=== PATIENT | male | born 1955 | race Caucasian/White ===

== ENCOUNTER 2017-03-12 22:56 | Observation (INO) | payer MEDICARE ==
[~2017-03-12] VITALS: Ht 185.4 cm; Wt 87.2 kg
[2017-03-12] MEDS ORDERED: SODIUM CHLOR 0.9% 1000 ML INJ 1,000 ML IV ONE (23:11)
[2017-03-12] MEDS ORDERED: SODIUM CHLORIDE 0.9% FLUSH 10 ML FLUSH IVF PRN (23:15)
[2017-03-12] MEDS ORDERED: ONDANSETRON HCL 4 MG/2 ML VIAL IVP ONE (23:15)
--- NOTE | 2017-03-12 23:19 | PD ---
HPI Chief Complaint: Cardiac Complaint Time Seen by Provider: 23:11 Travel History International Travel<30 days: No Contact w/Intl Traveler<30days: No Traveled to known affect area: No History of Present Illness HPI 61-year-old male presents to the emergency department by private transportation for complaint of severe dizziness and weakness after drinking alcohol and while standing. Patient states she felt as if he might faint so he sat down and did not have a syncopal episode. Patient did have some mild diaphoresis. No chest pain or shortness of breath. Patient recently moved in the past 3 [place] of [place]. Patient is not established with a primary care provider. Patient has history of hypertension CAD with previous stent placement and peripheral neuropathy. Patient does not report any referred neck jaw back shoulder arm or abdominal pain. No recent febrile illness. Patient states he does smoke cigarettes. Patient occasionally uses marijuana. Patient rates pain 0/10 intensity. Triage blood pressure is 84/44 with a heart rate of 53. Patient denies having any preceding pain or straining precipitating the event of dizziness and generalized weakness. No headache no visual disturbance no change in mentation difficulty with speech or swallowing no new unilateral weakness or numbness. Patient does take gabapentin for chronic peripheral neuropathy of the hands and feet. Patient is also prescribed Wellbutrin, Robaxin, and Toradol as well as metoprolol 25 mg twice daily which he has taken for several years. [facility] Past Medical History Narrative Medical Hypertension CAD cardiac stent arthritis peripheral neuropathy; tobacco use marijuana use alcohol use; nursing notes reviewed Social History Tobacco Use: Yes Allergies-Medications (Allergen,Severity, Reaction): Coded Allergies: acetaminophen (Verified Allergy, Unknown, Tachycardia, 03/12/17) Narrative Medication Metoprolol Robaxin Wellbutrin [place] Review of Systems Except as stated in HPI: all other systems reviewed are Neg General / Constitutional: No: Fever, Chills Eyes: No: Visual changes HENT: Positive: Vertigo, Lightheadedness, No: Headaches, Neck Pain Cardiovascular: Positive: Diaphoresis, No: Chest Pain or Discomfort, Palpitations, Syncope, Dyspnea on exertion, Edema, Claudication Respiratory: No: Cough, Shortness of Breath, Wheezing, Pleuritic Pain Gastrointestinal: No: Nausea, Vomiting, Abdominal Pain Genitourinary: No: Flank Pain Musculoskeletal: No: Limited ROM, Weakness, Pain Skin: No Rash Neurologic: Positive: Weakness, Dizziness, No: Syncope, Focal Abnormalities, Coordination Problem, Headache, Change in Mentation, Slurred Speech, Paresthesia , Incontinence, Seizures Psychiatric: Positive: Substance Abuse, No: Anxiety Hematologic/Lymphatic: No: Lymph Node Enlargement Physical Exam Narrative GENERAL: Well-developed well-nourished male in no acute distress no respiratory distress SKIN: Warm and dry. HEAD: Atraumatic. Normocephalic. EYES: Pupils equal and round. No scleral icterus. No injection or drainage. ENT: No nasal bleeding or discharge. Mucous membranes pink and moist. NECK: Trachea midline. No JVD. CARDIOVASCULAR: Decreased Regular rate and rhythm. RESPIRATORY: No accessory muscle use. Clear to auscultation. Breath sounds equal bilaterally. GASTROINTESTINAL: Abdomen soft, non-tender, nondistended. Hepatic and splenic margins not palpable. MUSCULOSKELETAL: Extremities without clubbing, cyanosis, or edema. No obvious deformities. NEUROLOGICAL: Awake and alert. No obvious cranial nerve deficits. Motor grossly within normal limits. Five out of 5 muscle strength in the arms and legs. Normal speech. PSYCHIATRIC: Appropriate mood and affect; insight and judgment normal. Data Data Last Documented VS Vital Signs Date Time Temp Pulse Resp B/P (MAP) Pulse Ox O2 Delivery O2 Flow Rate FiO2 03/13/17 00:34 97.7 51 18 83/52 (62) 95 Room Air Orders Orders Electrocardiogram (03/12/17 23:11) Complete Blood Count With Diff (03/12/17 23:11) Comprehensive Metabolic Panel (03/12/17 23:11) Magnesium (Mg) (03/12/17 23:11) Ckmb (Isoenzyme) Profile (03/12/17 23:11) Troponin I (03/12/17 23:11) Act Partial Throm Time (Ptt) (03/12/17 23:11) Prothrombin Time / Inr (Pt) (03/12/17 23:11) Urinalysis - C+S If Indicated (03/12/17 23:11) Chest, Single Ap (03/12/17 23:11) Ecg Monitoring (03/12/17 23:11) Iv Access Insert/Monitor (03/12/17 23:11) Oximetry (03/12/17 23:11) Ondansetron Inj (Zofran Inj) (03/12/17 23:15) Sodium Chloride 0.9% Flush (Ns Flush) (03/12/17 23:15) Sodium Chlor 0.9% 1000 Ml Inj (Ns 1000 M (03/12/17 23:11) Alcohol (Ethanol) (03/12/17 23:11) CKMB (03/12/17 23:15) CKMB% (03/12/17 23:15) Sodium Chlor 0.9% 1000 Ml Inj (Ns 1000 M (03/13/17 00:45) Admit Order (Ed Use Only) (03/13/17 ) ^ Saline Lock (03/13/17 00:48) Resp Oxygen Harjit C Titrat 1-4 L (03/13/17 ) Notify Dr: Other (03/13/17 00:48) Sodium Chloride 0.9% Flush (Ns Flush) (03/13/17 09:00) Sodium Chloride 0.9% Flush (Ns Flush) (03/13/17 01:00) Ct Brain W/O Iv Contrast(Rout) (03/13/17 ) Labs Laboratory Tests Test 03/12/17 23:15 White Blood Count 8.7 TH/MM3 Red Blood Count 3.99 MIL/MM3 Hemoglobin 13.3 GM/DL Hematocrit 38.4 % Mean Corpuscular Volume 96.1 FL Mean Corpuscular Hemoglobin 33.2 PG Mean Corpuscular Hemoglobin Concent 34.6 % Red Cell Distribution Width 12.1 % Platelet Count 268 TH/MM3 Mean Platelet Volume 8.9 FL Neutrophils (%) (Auto) 61.3 % Lymphocytes (%) (Auto) 25.8 % Monocytes (%) (Auto) 8.3 % Eosinophils (%) (Auto) 4.0 % Basophils (%) (Auto) 0.6 % Neutrophils # (Auto) 5.3 TH/MM3 Lymphocytes # (Auto) 2.3 TH/MM3 Monocytes # (Auto) 0.7 TH/MM3 Eosinophils # (Auto) 0.3 TH/MM3 Basophils # (Auto) 0.1 TH/MM3 CBC Comment DIFF FINAL Differential Comment Prothrombin Time 10.9 SEC Prothromb Time International Ratio 1.0 RATIO Activated Partial Thromboplast Time 25.1 SEC Blood Urea Nitrogen 18 MG/DL Creatinine 1.40 MG/DL Random Glucose 114 MG/DL Total Protein 7.2 GM/DL Albumin 4.1 GM/DL Calcium Level 8.8 MG/DL Magnesium Level 2.0 MG/DL Alkaline Phosphatase 67 U/L Aspartate Amino Transf (AST/SGOT) 19 U/L Alanine Aminotransferase (ALT/SGPT) 25 U/L Total Bilirubin 0.4 MG/DL Sodium Level 138 MEQ/L Potassium Level 3.8 MEQ/L Chloride Level 105 MEQ/L Carbon Dioxide Level 25.7 MEQ/L Anion Gap 7 MEQ/L Estimat Glomerular Filtration Rate 51 ML/MIN Total Creatine Kinase 138 U/L Creatine Kinase MB 3.4 NG/ML Troponin I LESS THAN 0.02 NG/ML Ethyl Alcohol Level 7 MG/DL [facility] Medical Decision Making Medical Screen Exam Complete: Yes Emergency Medical Condition: Yes Medical Record Reviewed: Yes Interpretation(s) EKG: Sinus bradycardia rate [address] elevation or injury pattern change or ectopy noted alcohol: 7, minimal elevation troponin I: <0.02, not elevated Last Impressions Chest X-Ray 03/12/17 2311 Signed Impressions: Service Date/Time: Sunday, March 12, 2017 23:28 - CONCLUSION: The lungs are clear. Luis Neves MD CBC & BMP Diagram 03/12/17 23:15 Total Protein 7.2, Albumin 4.1, Calcium Level 8.8, Magnesium Level 2.0, Alkaline Phosphatase 67, Aspartate Amino Transf (AST/SGOT) 19, Alanine Aminotransferase (ALT/SGPT) 25, Total Bilirubin 0.4 Vital Signs Date Time Temp Pulse Resp B/P (MAP) Pulse Ox O2 Delivery O2 Flow Rate FiO2 03/13/17 00:34 97.7 51 18 83/52 (62) 95 Room Air 03/13/17 00:09 54 Room Air 03/12/17 23:51 53 18 96/51 (66) 98 Room Air 03/12/17 23:26 97.6 54 18 82/46 (58) 97 03/12/17 23:24 18 98 Room Air Differential Diagnosis Near-syncope, vasovagal syncope, symptomatic bradycardia, ACS, FL, PE, anemia, TIA, alcohol intoxication Narrative Course IV access obtained patient placed on special education tutor and pulse oximetry patient identified to be hypotensive with bradycardia; patient placed in supine position and administered 1 L normal saline Patient resting comfortably voicing no concerns or complaints other than continues to feel mildly weak although remains hypotensive after x 1 L NS additional 1L NS bolus continues to complain of generalized weakness resting supine lab values mild renal insufficiency discussed with [facility] for OBS Physician Communication Physician Communication discussed with Dr Araujo Diagnosis Primary Impression: Near syncope Admitting Information Admitting Physician Requests: Observation Zulma Holbrook MD Mar 12, 2017 23:19
[2017-03-12 23:24] VITALS: RESP 18; O2SAT 98
[2017-03-12 23:26] VITALS: BP 82/46; PULSE 54; RESP 18; TEMP 97.6; O2SAT 97
--- NOTE | 2017-03-12 23:39 | RADRPT ---
EXAM DATE/TIME: 03/12/2017 23:28 [facility] COMPARISON: No previous studies available for comparison. INDICATIONS : Palpitations. MEDICAL HISTORY : Myocardial infarction. SURGICAL HISTORY : Coronary artery stent. ENCOUNTER: Initial ACUITY: 1 day PAIN SCORE: 2/10 LOCATION: Bilateral chest FINDINGS: A single view of the chest demonstrates the lungs to be symmetrically aerated without evidence of mas s, infiltrate or effusion. The cardiomediastinal contours are unremarkable. Osseous structures are intact. CONCLUSION: The lungs are clear. Luis Neves MD on March 12, 2017 at 23:38 Board Certified Radiologist. This report was verified electronically.
[2017-03-12 23:45] LABS: CHLORIDE 105 MEQ/L (98-107); POTASSIUM 3.8 MEQ/L (3.5-5.1); SODIUM (NA) 138 MEQ/L (136-145)
[2017-03-12 23:49] LABS: ANION GAP 7 MEQ/L (5-15); BICARBONATE 25.7 MEQ/L (21.0-32.0)
[2017-03-12 23:50] LABS: BLOOD UREA NITROGEN 18 MG/DL (7-18)
[2017-03-12 23:51] VITALS: BP 96/51; PULSE 53; RESP 18; O2SAT 98
[2017-03-12 23:51] LABS: APTT (PATIENT) 25.1 SEC (24.3-30.1); PROTHROMBIN TIME - PATIENT 10.9 SEC (9.8-11.6)
[2017-03-12 23:52] LABS: ALT (GPT) 25 U/L (12-78); AST (GOT) 19 U/L (15-37)
[2017-03-12 23:53] LABS: GLOMERULAR FILTRATION RATE 51 ML/MIN (>89)
[2017-03-12 23:54] LABS: TOTAL BILIRUBIN ADULT 0.4 MG/DL (0.2-1.0)
[2017-03-12 23:55] LABS: ALKALINE PHOSPHATASE 67 U/L (45-117); CREATINE KINASE 138 U/L (39-308)
[2017-03-13] VITALS (8 sets, daily range): BP systolic 83–118; BP diastolic 52–74; PULSE 49–57; RESP 12–20; TEMP 96.2–97.7; O2SAT 93–98
[2017-03-13 00:07] LABS: CKMB 3.4 NG/ML (0.5-3.6)
[2017-03-13 00:22] LABS: ALCOHOL 7 MG/DL (0-5)
[2017-03-13 00:26] LABS: AUTOMATED NEUTROPHIL # 5.3 TH/MM3 (1.8-7.7); BASOPHIL # 0.1 TH/MM3 (0-0.2); BASOPHIL % 0.6 % (0.0-2.0); EOSINOPHIL # 0.3 TH/MM3 (0-0.4); HEMATOCRIT 38.4 % (39.0-51.0); HEMO FLAGS DIFF FINAL; LYMPH % 25.8 % (9.0-44.0); LYMPHOCYTE # 2.3 TH/MM3 (1.0-4.8); MEAN CELL VOLUME 96.1 FL (80.0-100.0); MEAN CORPUSCULAR HEMOGLOBIN 33.2 PG (27.0-34.0); MEAN CORPUSCULAR HGB CONC 34.6 % (32.0-36.0); MONO % 8.3 % (0.0-8.0); NEUT % 61.3 % (16.0-70.0); PLATELET COUNT 268 TH/MM3 (150-450); RED BLOOD COUNT 3.99 MIL/MM3 (4.50-5.90); RED CELL DISTRIBUTION WIDTH 12.1 % (11.6-17.2); WHITE BLOOD COUNT 8.7 TH/MM3 (4.0-11.0)
[2017-03-13] MEDS ORDERED: SODIUM CHLOR 0.9% 1000 ML INJ 1,000 ML IV ONE (00:45)
[2017-03-13] MEDS ORDERED: SODIUM CHLORIDE 0.9% FLUSH 10 ML FLUSH IVF PRN (01:00)
[2017-03-13] MEDS ORDERED: SODIUM CHLORIDE 0.9% FLUSH 10 ML FLUSH IV FLUSH PRN (01:00)
[2017-03-13] MEDS ORDERED: ONDANSETRON HCL 4 MG/2 ML VIAL IVP PRN (01:00)
[2017-03-13] MEDS ORDERED: BISACODYL 10 MG SUPP RECTAL PRN (01:00)
[2017-03-13] MEDS ORDERED: MAGNESIUM HYDROXIDE SUSP 30 ML CUP PO PRN (01:00)
[2017-03-13] MEDS ORDERED: LACTULOSE SYRUP 20 GM/30 ML CUP PO PRN (01:00)
[2017-03-13] MEDS ORDERED: SENNOSIDES 8.6 MG TAB PO PRN (01:00)
[2017-03-13] MEDS: SODIUM CHLOR 0.9% 1000 ML INJ 1,000 ML IV SCH ×2 (01:50→10:54)
--- NOTE | 2017-03-13 01:50 | RADRPT ---
EXAM DATE/TIME: 03/13/2017 00:59 [facility] COMPARISON: No previous studies available for comparison. INDICATIONS : Extreme weakness. Nausea. RADIATION DOSE: 61.86 CTDIvol (mGy) MEDICAL HISTORY : Myocardial infarction. SURGICAL HISTORY : None. ENCOUNTER: Initial ACUITY: 1 day PAIN SCALE: 4/10 LOCATION: cranial TECHNIQUE: Multiple contiguous axial images were obtained of the head. Using automated exposure control and adj ustment of the mA and/or kV according to patient size, radiation dose was kept as low as reasonably a chievable to obtain optimal diagnostic quality images. DICOM format image data is available electro nically for review and comparison. FINDINGS: CEREBRUM: The ventricles are normal for age. No evidence of midline shift, mass lesion, hemorrhage or acute in farction. No extra-axial fluid collections are seen. Physiologic calcification in the basal ganglia bilaterally. POSTERIOR FOSSA: The cerebellum and brainstem are intact. The 4th ventricle is midline. The cerebellopontine angle i s unremarkable. EXTRACRANIAL: The visualized portion of the orbits is intact. SKULL: The calvaria is intact. No evidence of skull fracture. CONCLUSION: Negative noncontrast CT brain. Luis Neves MD on March 13, 2017 at 1:48 Board Certified Radiologist. This report was verified electronically.
[2017-03-13 02:01] LABS: BLOOD, URINE NEG (NEG); GLUCOSE,URINE NEG (NEG); KETONE, URINE NEG (NEG); NITRITE,URINE NEG (NEG); PH, URINE 6.5 (5.0-8.5)
[2017-03-13 02:05] LABS: URINE COLOR YELLOW (YELLW/STRAW); WBC, URINE 0-2 /hpf (0-5)
[2017-03-13 02:06] LABS: COMMENT (UR) CULT NOT INDICATED; CULTURE IF INDICATED CULT NOT INDICATED; SQUAMOUS EPITHELIAL CELL URINE 0-5 /hpf (0-5)
[2017-03-13 07:17] LABS: AUTOMATED NEUTROPHIL # 5.1 TH/MM3 (1.8-7.7); BASOPHIL % 0.4 % (0.0-2.0); EOSINOPHIL # 0.3 TH/MM3 (0-0.4); EOSINOPHIL % 3.3 % (0.0-4.0); HEMATOCRIT 34.5 % (39.0-51.0); HEMO FLAGS DIFF FINAL; LYMPH % 23.2 % (9.0-44.0); LYMPHOCYTE # 1.8 TH/MM3 (1.0-4.8); MEAN CELL VOLUME 96.1 FL (80.0-100.0); MEAN CORPUSCULAR HEMOGLOBIN 32.6 PG (27.0-34.0); MONO % 9.7 % (0.0-8.0); NEUT % 63.4 % (16.0-70.0); PLATELET COUNT 194 TH/MM3 (150-450); RED BLOOD COUNT 3.58 MIL/MM3 (4.50-5.90); RED CELL DISTRIBUTION WIDTH 11.8 % (11.6-17.2)
[2017-03-13 07:25] LABS: CHLORIDE 110 MEQ/L (98-107); POTASSIUM 4.4 MEQ/L (3.5-5.1); SODIUM (NA) 141 MEQ/L (136-145)
[2017-03-13 07:41] LABS: ALKALINE PHOSPHATASE 61 U/L (45-117); ALT (GPT) 29 U/L (12-78); ANION GAP 5 MEQ/L (5-15); AST (GOT) 23 U/L (15-37); BICARBONATE 25.7 MEQ/L (21.0-32.0); BLOOD UREA NITROGEN 17 MG/DL (7-18); GLOMERULAR FILTRATION RATE 77 ML/MIN (>89); TOTAL BILIRUBIN ADULT 0.3 MG/DL (0.2-1.0)
[2017-03-13] MEDS ORDERED: DOCUSATE SODIUM 50 MG/SENNA 8.6 MG TAB PO SCH (09:00)
[2017-03-13] MEDS ORDERED: SODIUM CHLORIDE 0.9% FLUSH 10 ML FLUSH IV FLUSH SCH ×2 (09:00)
--- NOTE | 2017-03-13 11:57 | HHI.HP ---
[facility] Service [place] [facility] Primary Care Physician Non-Staff Admission Diagnosis Near syncope Diagnoses: (1) Hypotension (2) Sinus bradycardia (3) Near syncope Travel History International Travel<30 Days: No Contact w/Intl Traveler <30 Da: No Traveled to Known Affected Are: No History of Present Illness This is a pleasant 61 year-old male with past medical history of coronary artery disease status post stent in 2010, peripheral neuropathy who presented to the ER yesterday evening complaining of weakness, dizziness and a near syncopal event. The patient states that he had a 12 ounce of beer with 2 shots of vodka and then went for a long walk on the beach with his . When he returned home he felt dizzy, lightheaded and and diaphoretic as if he was about to pass out and so he sat down. He did not have any chest pain or chest pressure. Emergency triage blood pressure was 84/44 with a heart rate of 53. Patient does take metoprolol which she has been on for several years. Patient moved to the area 3 months ago from [place] and has not established with a primary care physician here. He has a pt skilled and primary care physician in [place] who he plans to follow-up with next month. The patient also states that he has had plugged ear and has been dizzy on and off for several weeks. Review of Systems Constitutional: DENIES: Fever, Chills Ears, nose, mouth, throat: DENIES: Tinnitus, Hearing loss Respiratory: DENIES: Cough, Shortness of breath Cardiovascular: DENIES: Chest pain, Palpitations, Lower Extremity Edema Gastrointestinal: DENIES: Abdominal pain, Vomiting Genitourinary: DENIES: Urgency, Dysuria Musculoskeletal: DENIES: Back pain, Neck pain Integumentary: DENIES: Rash Hematologic/lymphatic: DENIES: Lymphadenopathy Neurologic: DENIES: Abnormal gait, Headache Psychiatric: DENIES: Anxiety, Confusion Past Family Social History Past Medical History Hypertension Coronary artery disease Peripheral neuropathy Past Surgical History Cardiac stent 2010 Reported Medications The patient states he takes Wellbutrin, metoprolol, aspirin, Neurontin Allergies: Coded Allergies: acetaminophen (Verified Allergy, Unknown, Tachycardia, 03/12/17) Family History Reviewed and noncontributory. Social History He does continue to smoke cigarettes although he has cut back from 2 pack a day to about 7 a day. He does drink alcohol socially. Physical Exam Vital Signs Vital Signs Date Time Temp Pulse Resp B/P (MAP) Pulse Ox O2 Delivery O2 Flow Rate FiO2 03/13/17 11:00 97.1 49 18 103/58 (73) 98 113/67 (82) 114/74 (87) 03/13/17 08:00 93 21 03/13/17 08:00 96.9 50 12 109/59 (76) 96 03/13/17 04:30 97 21 03/13/17 04:11 96.5 50 14 110/65 (80) 98 03/13/17 02:24 96.2 53 20 118/69 (85) 95 03/13/17 02:13 55 03/13/17 01:43 57 18 107/56 (73) 98 Room Air 03/13/17 00:34 97.7 51 18 83/52 (62) 95 Room Air 03/13/17 00:09 54 Room Air 03/12/17 23:51 53 18 96/51 (66) 98 Room Air 03/12/17 23:26 97.6 54 18 82/46 (58) 97 03/12/17 23:24 18 98 Room Air Physical Exam GENERAL: Well-nourished, well-developed patient. SKIN: Warm and dry. HEAD: Normocephalic. EYES: No scleral icterus. No injection or drainage. NECK: Supple, trachea midline. No JVD or lymphadenopathy. CARDIOVASCULAR: Regular rate and rhythm without murmurs, gallops, or rubs. RESPIRATORY: Breath sounds equal bilaterally. No accessory muscle use. GASTROINTESTINAL: Abdomen soft, non-tender, nondistended. EXTREMITIES: No cyanosis, or edema. NEUROLOGICAL: Awake, alert, and oriented x 3. Non-focal. Laboratory Laboratory Tests Test 03/12/17 23:15 03/13/17 01:51 03/13/17 06:30 White Blood Count 8.7 8.0 Red Blood Count 3.99 3.58 Hemoglobin 13.3 11.7 Hematocrit 38.4 34.5 Mean Corpuscular Volume 96.1 96.1 Mean Corpuscular Hemoglobin 33.2 32.6 Mean Corpuscular Hemoglobin Concent 34.6 34.0 Red Cell Distribution Width 12.1 11.8 Platelet Count 268 194 Mean Platelet Volume 8.9 8.7 Neutrophils (%) (Auto) 61.3 63.4 Lymphocytes (%) (Auto) 25.8 23.2 Monocytes (%) (Auto) 8.3 9.7 Eosinophils (%) (Auto) 4.0 3.3 Basophils (%) (Auto) 0.6 0.4 Neutrophils # (Auto) 5.3 5.1 Lymphocytes # (Auto) 2.3 1.8 Monocytes # (Auto) 0.7 0.8 Eosinophils # (Auto) 0.3 0.3 Basophils # (Auto) 0.1 0.0 CBC Comment DIFF FINAL DIFF FINAL Differential Comment Prothrombin Time 10.9 Prothromb Time International Ratio 1.0 Activated Partial Thromboplast Time 25.1 Blood Urea Nitrogen 18 17 Creatinine 1.40 0.99 Random Glucose 114 104 Total Protein 7.2 5.8 Albumin 4.1 3.3 Calcium Level 8.8 8.1 Magnesium Level 2.0 Alkaline Phosphatase 67 61 Aspartate Amino Transf (AST/SGOT) 19 23 Alanine Aminotransferase (ALT/SGPT) 25 29 Total Bilirubin 0.4 0.3 Sodium Level 138 141 Potassium Level 3.8 4.4 Chloride Level 105 110 Carbon Dioxide Level 25.7 25.7 Anion Gap 7 5 Estimat Glomerular Filtration Rate 51 77 Total Creatine Kinase 138 Creatine Kinase MB 3.4 Troponin I LESS THAN 0.02 LESS THAN 0.02 Ethyl Alcohol Level 7 Urine Color YELLOW Urine Turbidity CLEAR Urine pH 6.5 Urine Specific [place] 1.006 Urine Protein NEG Urine Glucose (UA) NEG Urine Ketones NEG Urine Occult Blood NEG Urine Nitrite NEG Urine Bilirubin NEG Urine Leukocyte Esterase NEG Urine WBC 0-2 Urine Squamous Epithelial Cells 0-5 Microscopic Urinalysis Comment CULT NOT INDICATED Result Diagram: 03/13/1762903/13/17629 Imaging EKG showed sinus bradycardia and no ST or T-wave changes. Last Impressions Head CT 03/13/17 0000 Signed Impressions: Service Date/Time: Monday, March 13, 2017 00:59 - CONCLUSION: Negative noncontrast CT brain. Luis Neves MD Chest X-Ray 03/12/17 2311 Signed Impressions: Service Date/Time: Sunday, March 12, 2017 23:28 - CONCLUSION: The lungs are clear. Luis Neves MD [place] VTE Risk Assessment Caprini VTE Risk Assessment: No/Low Risk (score <= 1) Caprini Risk Assessment Model Point Value = 1 Point Value = 2 Point Value = 3 Point Value = 5 Age 41-60 Minor surgery BMI > 25 kg/m2 Swollen legs Varicose veins or History of unexplained or recurrent spontaneous Oral contraceptives or hormone replacement Sepsis (< 1 month) Serious lung disease, including pneumonia (< 1 month) Abnormal pulmonary function Acute myocardial infarction Congestive heart failure (< 1 month) History of inflammatory bowel disease Medical patient at bed rest Age 61-74 Arthroscopic surgery Major open surgery (> 45 min) Laparoscopic surgery (> 45 min) Malignancy Confined to bed (> 72 hours) Immobilizing plaster cast Central venous access Age >= 75 History of VTE Family history of VTE Factor V Leiden Prothrombin [id number] Lupus anticoagulant Anticardiolipin antibodies Elevated serum homocysteine Heparin-induced thrombocytopenia Other congenital or acquired thrombophilia Stroke (< 1 month) Elective arthroplasty Hip, pelvis, or leg fracture Acute spinal cord injury (< 1 month) Prophylaxis Regimen Total Risk Factor Score Risk Level Prophylaxis Regimen 0-1 Low Early ambulation 2 Moderate Order ONE of the following: *Sequential Compression Device (SCD) *Heparin 5000 units SQ BID 3-4 Higher Order ONE of the following medications: *Heparin 5000 units SQ TID *Enoxaparin/Lovenox 40 mg SQ daily (WT < 150 kg, CrCl > 30 mL/min) *Enoxaparin/Lovenox 30 mg SQ daily (WT < 150 kg, CrCl > 10-29 mL/min) *Enoxaparin/Lovenox 30 mg SQ BID (WT < 150 kg, CrCl > 30 mL/min) AND/OR *Sequential Compression Device (SCD) 5 or more Highest Order ONE of the following medications: *Heparin 5000 units SQ TID (Preferred with Epidurals) *Enoxaparin/Lovenox 40 mg SQ daily (WT < 150 kg, CrCl > 30 mL/min) *Enoxaparin/Lovenox 30 mg SQ daily (WT < 150 kg, CrCl > 10-29 mL/min) *Enoxaparin/Lovenox 30 mg SQ BID (WT < 150 kg, CrCl > 30 mL/min) AND *Sequential Compression Device (SCD) Assessment and Plan Assessment and Plan -Near syncopal event due to hypotension, sinus bradycardia - likely was somewhat dehydrated due to alcohol and a long walk on the beach. Blood pressure now improved after given IV fluids overnight. He is no longer dizzy or symptomatic. He would like to go home. I did advise him and his that he should stay off the metoprolol until reevaluated by his primary care physician. And to drink more fluids and avoid alcohol. Johanny Pritchard MD Mar 13, 2017 11:57
--- NOTE | 2017-03-13 13:57 | EKG ---
Date Performed: 03/12/2017 Time Performed: 23:07:22 PTAGE: 61 years EKG: SINUS BRADYCARDIA Slight ST elevation in leads V1 and aVL, which may be due to early repola rization BORDERLINE ECG NO PREVIOUS TRACING DOCTOR: Jeremias Green Interpretating Date/Time 03/13/2017 13:56:09
--- NOTE | 2017-03-13 14:47 | ECHRPT ---
Indication: cardiomyopathy CONCLUSIONS The left ventricular systolic function is normal with an estimated ejection fraction in the range of 55-60%. Normal left ventricular size. [id number] mitral valve regurgitation. There is mild tricuspid valve regurgitation. The estimated pulmonary arterial pressure is 39.8 mmHg. BP: / HR: Rhythm: MEASUREMENTS (Male / Female) Normal Values Technical Quality:Good 2D ECHO LV Diastolic Diameter PLAX 5.1 cm 4.2 - 5.9 / 3.9 - 5.3 cm LV Systolic Diameter PLAX 3.9 cm IVS Diastolic Thickness 1.1 cm 0.6 - 1.0 / 0.6 - 0.9 cm LVPW Diastolic Thickness 1.0 cm 0.6 - 1.0 / 0.6 - 0.9 cm LV Relative Wall Thickness 0.4 RV Internal Dim ED PLAX 3.6 cm M-MODE Aortic Root Diameter MM 3.3 cm LA Systolic Diameter MM 4.4 cm LA Ao Ratio MM 1.3 AV Cusp Separation MM 2.5 cm DOPPLER LV E' Lateral Velocity 13.4 cm/s LV E' Septal Velocity 8.8 cm/s TR Peak Velocity 273.0 cm/s TR Peak Gradient 29.8 mmHg Right Atrial Pressure 10.0 mmHg Pulmonary Artery Systolic Pressu 39.8 mmHg Right Ventricular Systolic Press 39.8 mmHg FINDINGS LEFT VENTRICLE The left ventricular systolic function is normal with an estimated ejection fraction in the range of 55-60%. Normal left ventricular size. RIGHT VENTRICLE Normal right ventricular size and systolic function. LEFT ATRIUM The left atrial size is normal. RIGHT ATRIUM The right atrial size is normal. ATRIAL SEPTUM Normal atrial septal thickness without atrial level shunting by limited color doppler interrogation. AORTA The aortic root and proximal ascending aorta are normal in size on limited imaging. MITRAL VALVE Structurally normal mitral valve. [id number] mitral valve regurgitation. AORTIC VALVE Trileaflet aortic valve. No aortic valve stenosis or regurgitation. TRICUSPID VALVE Structurally normal tricuspid valve. There is mild tricuspid valve regurgitation. The estimated pulmonary arterial pressure is 39.8 mmHg. PULMONARY VALVE No pulmonary valve regurgitation or stenosis. VESSELS The inferior vena cava is normal in size. PERICARDIUM No pericardial effusion. Ahsan Bassett MD (Electronically Signed) Final Date:13 March 2017 14:46
== END 2017-03-13 13:34 | disposition home or self-care (01) ==
LOC: PHED 22:56 → PHEDA 03-13 00:50 → PH3B 03-13 02:07
PROVIDERS: ADMIT Family Medicine; ATTEND Family Medicine
DX: I95.9 Hypotension, unspecified (principal); R00.1 Bradycardia, unspecified; R55 Syncope and collapse; E86.0 Dehydration; F12.90 Cannabis use, unspecified, uncomplicated; F17.210 Nicotine dependence, cigarettes, uncomplicated; I25.10 Atherosclerotic heart disease of native coronary artery without angina pectoris; G62.9 Polyneuropathy, unspecified; N28.9 Disorder of kidney and ureter, unspecified; I10 Essential (primary) hypertension; Z95.5 Presence of coronary angioplasty implant and graft
CPT/HCPCS: 70450; 71010; 80053; 80307; 81001; 82550; 82552; 83735; 84484; 85025; 85610; 85730; 93005; 93306; 96361; 96374; 99285; G0378; J2405; J7030